=== PATIENT | male | born 1970 | race Caucasian/White ===

== ENCOUNTER 2020-02-28 09:26 | Outpatient (REF) | payer MEDICARE, SELFPAY ==
[2020-02-28 11:47] LABS: D Dimer < 200 NG/ML
== END 2020-02-28 09:27 | disposition home or self-care (01) ==
LOC: HO.HMGCLDS 09:26
PROVIDERS: Visit Provider Nurse Practitioner Family
DX: M79.661 Pain in right lower leg (principal)
CPT/HCPCS: 36415; 85379

== ENCOUNTER 2020-03-24 12:26 | Emergency (ER) | payer MEDICARE, SELFPAY ==
[2020-03-24 12:33] VITALS: BP 159/78; PULSE 100; RESP 18; TEMP 36.7; O2SAT 99; BMI 21.6
--- NOTE | 2020-03-24 14:37 | XR_ITS ---
EXAMINATION: XR ANKLE, RIGHT XR KNEE, RIGHT XR FEMUR, RIGHT XR LUMBAR SPINE XR SACRUM AND COCCYX CLINICAL INFORMATION: Persistent back and leg pain. GET +. COMPARISON: None TECHNIQUE: Lumbar spine 3 views. Sacrum and coccyx 3 views. Right femur 2 views. Right knee 2 views and right ankle 3 views. FINDINGS: LUMBAR SPINE: There is normal lumbar lordosis. The vertebral heights and alignment are normal. There is loss of L1-L2 and L3-L4 disc heights. The rest of the disc heights are normal. There is mild ventral spondylosis at L1-L2 and L3-L4. No lytic or sclerotic process seen. No visible acute fracture, dislocation or lytic process seen. SACRUM AND COCCYX: There is normal vertebral heights. No visible acute fracture, dislocation or bony abnormality seen. The presacral and parasacral soft tissues are normal. RIGHT FEMUR: There is no visible acute fracture seen. There is a moderate enthesophyte along the anterior distal femur and large enthesophyte along the medial femoral condyle. These could be as a result of old trauma. RIGHT KNEE: There is an intramedullary tibial sarahy traversing the proximal mid tibia. Mild reduction in the medial compartment joint space is seen with periarticular spurring. The lateral and patellofemoral compartment joint space is maintained. No abnormal suprapatellar joint effusion is seen. RIGHT ANKLE: There are old healed mid distal tibial and fibular fractures with moderate callus formation. The ankle mortise and subtalar joints are normal. Subtalar joint is normal. XR/XR sacrum coccyx min 2V IMPRESSION: No acute fracture, dislocation or subluxation seen in the lumbar spine, sacrum or coccyx. Moderate ventral spondylosis at the L1-L2 and L3-L4 disc level. No visible acute fracture or dislocation right femur. There is a moderate enthesophyte along the anterior distal femur and along the medial femoral condyle. There is mild loss of medial compartment joint space with periarticular spurring. No visible acute fracture or dislocation seen. There is an intramedullary tibial sarahy and old healed mid tibial fracture. Also visualized is an old healed mid fibular fracture. No acute fracture seen in the tibiofibular bone at this time. There is no visible acute fracture, dislocation or subluxation in the right ankle.
--- NOTE | 2020-03-24 15:08 | ED.FALL ---
HPI - Fall General Chief Complaint: Extremity Injury, Lower Stated Complaint: rt leg pain Time Seen by Provider: 03/24/20 14:27 Source: patient Mode of arrival: ambulatory Limitations: no limitations History of Present Illness HPI Narrative: 49yoM c No Sig PMHx presenting to the ED c c/o lower back/coccyx/Right upper leg/knee/ankle pain since he slipped and fell x 2 months ago on Ice pain is worse today after attmepting to go to a urgent care center that offers physical therapy. Denies head injury loss of consciousness or being on any blood thinners. Denies any other symptoms complaints or concerns at this time. Related Data Previous Rx's Medication Instructions Recorded lidocaine 5 % topical patch 2 patch TOPICAL DAILY #30 ea 02/28/20 prednisone 20 mg tablet 20 mg PO DAILY 9 Days #18 tab MDD 02/28/20 3 for 3days;2 for 3 days;1 3da gabapentin 100 mg capsule 200 mg PO BID #60 cap 03/21/20 oxycodone 5 mg PO Q8H PRN #14 tab 03/24/20 Allergies Allergy/AdvReac Type Severity Reaction Status Date / Time No Known Allergies Allergy Verified 03/21/20 08:18 Review of Systems Review of Systems: Constitutional : No trauma, No Weight loss, No Fever, No Chills, ENT/Mouth : No Hearing loss, No Ear Pain, No Nasal Congestion, No Sinus Pain, No Hoarseness, No sore throat, No Rhinorrhea, No Swallowing Difficulty Cardiovascular : No Chest Pain, No SOB Respiratory : No Cough, No Dyspnea Gastrointestinal : No Nausea, No Vomiting, No Diarrhea, No abdominal Pain, No Hematochezia, No Melena Genitourinary : No Dysuria, No Urinary Frequency, No Hematuria, No Urinary or Bowel Incontinence/retention Musculoskeletal : + Back pain, + Joint pain, No neck pain, No joint stiffness, No joint swelling Skin : No Skin Lesions, No rash or signs of infection Neuro : No Weakness, No radiation, No Numbness, No Paresthesias, No headache, no loss of bowel or bladder incontinence, no saddle anesthesia Denies history of IV drug usage. Yes all other systems are reviewed and are negative PMFSH Past Medical History Attestation statement: The following information was validated with the patient. Social History Social History Advance Directives: No Advance Directives Information Provided: No Physical Exam Vital Signs: Vital Signs: Last Vital Signs Temp 98.0 F 03/24/20 12:33 Pulse 100 03/24/20 12:33 Resp 18 03/24/20 12:33 BP 159/78 H 03/24/20 12:33 Pulse Ox 99 03/24/20 12:33 Body Mass Index 21.6 vital signs have been reviewed as normal and appeared to be correct. Blood pressure normal. Heart rate normal. Respiration rate normal. Temperature normal. Oxygen saturation normal. Appearance: Alert. Oriented X3. No acute distress. Head: Normal external exam. Normocephalic. Atraumatic. No Dixon signs noted. No raccoon eyes noted Eyes: PERRLA. EOMI. Conjunctiva and sclera normal. Eyelids normal. ENT: Pharynx normal. Uvula midline. Moist mucous membranes. Neck: Normal inspection. Neck supple. FROM. No adenopathy. No meningeal signs. CVS: Normal heart rate and rhythm. Heart sound normal. No murmurs noted. Pulses normal throughout. Respiratory: No respiratory distress. Painless inspiration. Breath sounds normal. No wheezes/rales/rhonchi noted. Chest nontender. No accessory muscle usage noted or decreased air movement noted. Back: No CVA tenderness. Full range of motion noted. No obvious deformities, or edema. Mild para-spinal muscular tenderness from lumbar region to coccyx. Full ROM in back and lower extremities. 5/5 strength hip extension/flexion, abduction, adduction. Mild Lumbar pain with hip flexion against resistance. Straight leg raise test negative on right; Straight leg raise test negative on left; Reflexes normal ankle and knee bilaterally; EHL motor strength normal bilaterally Skin: Skin warm and dry. Normal skin color. Normal skin turgor. No rashes/lesions/lacerations noted. Extremities: Tender to palpation to Right upper leg/knee/ankle no obvious deformities and patient has full range of motion of all joints of the right lower extremity. No obvious deformities. Patient has a normal steady gait. No rashes/lesion/induration/fluctuance/abrasion/lacerations/ecchymosis or hematomas noted. All other Extremities exhibit normal range of motion and nontender. Neuro: Oriented X 3. No motor deficit. No sensory deficit. Reflexes normal. Course Course Course Narrative: 14:37pm - 49yoM c No Sig PMHx presenting to the ED c c/o lower back/coccyx/Right upper leg/knee/ankle pain since he slipped and fell x 2 months ago on Ice pain is worse today after attempting to go to a urgent care center that offers physical therapy. Plan: Xray of lumbar spine/coccyx/femur/knee/ankle. Provide 5 mg of oxycodone and re-evaluate. Reevaluation(s) Reevaluation #1: - x-rays negative for any acute processes revealed chronic changes will DC home with a short script for pain meds and instructions return if any new or worsening symptoms. Patient understands agrees the plan. Time: 16:44 MDM - Fall Differential Diagnosis Differential diagnosis: Likely dislocation, fracture and compression fracture Medical Records Attestation: I reviewed the patient's medical records. Imaging Data Right ankle/knee/femur/lumbar spine/sacrum and coccyx: Attestation: I personally reviewed and interpreted this imaging study as follows: Radiologist's impression: EXAMINATION: XR ANKLE, RIGHT XR KNEE, RIGHT XR FEMUR, RIGHT XR LUMBAR SPINE XR SACRUM AND COCCYX CLINICAL INFORMATION: Persistent back and leg pain. GET +. COMPARISON: None TECHNIQUE: Lumbar spine 3 views. Sacrum and coccyx 3 views. Right femur 2 views. Right knee 2 views and right ankle 3 views. FINDINGS: LUMBAR SPINE: There is normal lumbar lordosis. The vertebral heights and alignment are normal. There is loss of L1-L2 and L3-L4 disc heights. The rest of the disc heights are normal. There is mild ventral spondylosis at L1-L2 and L3-L4. No lytic or sclerotic process seen. No visible acute fracture, dislocation or lytic process seen. SACRUM AND COCCYX: There is normal vertebral heights. No visible acute fracture, dislocation or bony abnormality seen. The presacral and parasacral soft tissues are normal. RIGHT FEMUR: There is no visible acute fracture seen. There is a moderate enthesophyte along the anterior distal femur and large enthesophyte along the medial femoral condyle. These could be as a result of old trauma. RIGHT KNEE: There is an intramedullary tibial sarahy traversing the proximal mid tibia. Mild reduction in the medial compartment joint space is seen with periarticular spurring. The lateral and patellofemoral compartment joint space is maintained. No abnormal suprapatellar joint effusion is seen. RIGHT ANKLE: There are old healed mid distal tibial and fibular fractures with moderate callus formation. The ankle mortise and subtalar joints are normal. Subtalar joint is normal. XR/XR ankle RT min 3V IMPRESSION: No acute fracture, dislocation or subluxation seen in the lumbar spine, sacrum or coccyx. Moderate ventral spondylosis at the L1-L2 and L3-L4 disc level. No visible acute fracture or dislocation right femur. There is a moderate enthesophyte along the anterior distal femur and along the medial femoral condyle. There is mild loss of medial compartment joint space with periarticular spurring. No visible acute fracture or dislocation seen. There is an intramedullary tibial sarahy and old healed mid tibial fracture. Also visualized is an old healed mid fibular fracture. No acute fracture seen in the tibiofibular bone at this time. There is no visible acute fracture, dislocation or subluxation in the right ankle. Discharge Plan Discharge Clinical Impression: Ankle sprain and strain, Leg sprain, Knee sprain, Lumbar strain, Fall, Strain of coccyx Patient Disposition: Home, Self-Care Instructions: Sprain (ED) Prescriptions: New oxycodone 5 mg tablet 5 mg PO Q8H PRN (Reason: pain) Qty: 14 RF: 0 No Action prednisone 20 mg tablet 20 mg PO DAILY MDD 3 for 3days;2 for 3 days;1 3da 9 Days Qty: 18 RF: 0 lidocaine 5 % adhesive patch,medicated 2 patch topical DAILY Qty: 30 RF: 0 gabapentin 100 mg capsule 200 mg PO BID Qty: 60 RF: 0 Referrals: Physician,None [Primary Care Provider] - 2 days (your pcp) Print Language: Greenlandic
[2020-03-24] MEDS: oxyCODONE HCl Immed Release 5 MG TABLET PO (15:09)
[2020-03-24 16:59] VITALS: BP 148/88; PULSE 94; RESP 16; TEMP 36.6; O2SAT 96
== END 2020-03-24 17:01 | disposition home or self-care (01) ==
PROVIDERS: Emergency Provider Emergency Medicine
DX: S83.91XA Sprain of unspecified site of right knee, initial encounter (principal); S39.012A Strain of muscle, fascia and tendon of lower back, initial encounter; S93.401A Sprain of unspecified ligament of right ankle, initial encounter; M79.604 Pain in right leg; M53.3 Sacrococcygeal disorders, not elsewhere classified; W00.0XXA Fall on same level due to ice and snow, initial encounter; Y93.9 Activity, unspecified; Y92.9 Unspecified place or not applicable; Y99.9 Unspecified external cause status; Z79.899 Other long term (current) drug therapy
CPT/HCPCS: 72110; 72220; 73552; 73564; 73610; 99283; 99284

== ENCOUNTER 2020-04-28 10:00 | Outpatient (RCR) | payer MEDICARE, SELFPAY ==
--- NOTE | 2020-03-23 19:13 | MHC.PT.EP ---
[facility] [place] Office [place] Office [place] Office [address] [phone] F: [phone] F: [phone] F: [phone] F: [phone] Physical Therapy Plan of Care Date of Evaluation: 03/23/20 Date of Surgery: Diagnosis: Sciatica R side. Assessment: Pt is a 49 y/o male referred to PT for eval ant treat of R sided sciatica who presents with signs and Sx consistent with Dx resulting in decreased tolerance for sitting and standing for duration, walking for duration, negotiating stairs and curbs as well as performing heavy HH chores secondary to decreased trunk ROM and strength, increased R LE tissue tension, gait abnormality, pelvic asymmetry, hip weakness, decreased R L5 dermatome sensation, and pain. Pt is deemed an appropriate candidate to receive skilled PT services to address his physical impairments in order to improve his functional ability. Frequency and Duration: The patient will be seen 2 x /wk x 5 wks. Short Term Goals: in 1 week: initiate HEP with evidence of compliance. In 3 weeks: TTP of R HS area improved to < 2 +, initial 3+ (considerable). Detention Goals: In 5 weeks: i with HEP. In 5 weeks: Pt will be able to walk 2 blocks with at most a little bit of difficulty; initial: extreme difficulty or unable (LEFs). Treatment Plan: Modalities to reduce pain, spasms and effusion. Manual therapy to restore motion and function. Therapeutic exercise to improve strength and flexibility. Neuromuscular re-education for posture and balance. Therapeutic activities to return to functional activities of daily living. Electronically signed by: Chidi Cabrera PT. Please sign and return to therapist. Thank you for your referral.
--- NOTE | 2020-07-06 16:10 | MHC.PT.DC ---
[facility] [place] Office [place] Office [place] Office [address] [phone] F: [phone] F: [phone] F: [phone] F: [phone] Physical Therapy Discharge Report Diagnosis: Sciatica R side. Date of Surgery: Date of Evaluation: 03/23/20 Date of Discharge: Treatments to Date: 9 Cancellations to Date: 0 No Shows to Date: 0 Discharge Status: Independent with HEP Recommend MD Follow-up Discharge Summary: From last note: I reviewed the HEP and assessed progress on symptoms and function. Pt is challenging to gauge in terms of subjective reports. But at this time, we determined it was best to continue with HEP and return to MD (appt today) due to lack of significant progress. Electronically signed by: Chidi Cabrera PT. Please sign and return to therapist. Thank you for your referral.
== END 2020-07-06 16:12 | disposition home or self-care (01) ==
LOC: HO.PTCHIC 10:00
PROVIDERS: Visit Provider Nurse Practitioner Family
DX: M54.31 Sciatica, right side (principal)
CPT/HCPCS: 97014; 97110; 97140; 97162

== ENCOUNTER 2020-04-28 12:00 | Outpatient (REF) | payer MEDICARE, SELFPAY ==
--- NOTE | ~2020-04-28 | MR_ITS ---
MR LUMBAR SPINE WITHOUT CONTRAST CLINICAL INFORMATION: Low back pain. COMPARISON: Lumbar spine radiographs 04/13/2020. TECHNIQUE: MRI of the lumbar spine was obtained using routine sequences without contrast. FINDINGS: There are 5 nonrib-bearing lumbar-type vertebral bodies. Lumbar alignment is normal. Chronic endplate Schmorl's nodes at the lower thoracic and all lumbar levels. Modic type I endplate signal changes at all lumbar levels. There are no acute fractures. Conus terminates at the T12-L1 level. There are no significant soft tissue findings. There is a fatty filum terminale. L1-L2: Diffuse annular disc bulge with a superimposed right foraminal/extraforaminal disc protrusion that results in moderate to severe right-sided foraminal stenosis with mass effect on the exiting right L1 nerve root. No central canal and no left foraminal stenosis. L2-L3: Diffuse annular disc bulge and bilateral facet arthropathy. No central canal stenosis. There is mild foraminal encroachment bilaterally. L3-L4: There is a diffuse annular disc bulge the superimposed left foraminal/extraforaminal disc protrusion that results in moderate to severe left foraminal stenosis and compression of the foraminal and extraforaminal segments of the exiting left L3 nerve root. There is mild right foraminal encroachment. No central canal stenosis. L4-L5: Diffuse annular disc bulge with a superimposed right foraminal/extra foraminal disc protrusion that results in moderate to severe right-sided foraminal stenosis and compression of the extraforaminal greater than foraminal segments of the exiting right L4 nerve root. No central canal and no left foraminal stenosis. L5-S1: Diffuse annular disc bulge the superimposed inferiorly migrating right paracentral disc extrusion that compresses the traversing right S1 nerve root within the right subarticular zone. A far left lateral disc osteophyte protrusion contacts the extra foraminal left L5 nerve root. MR/MR lumbar spine wo con IMPRESSION: - At L5-S1, there is an inferiorly migrating right paracentral disc extrusion that compresses the traversing right S1 nerve root within the right subarticular zone. A far left lateral disc osteophyte protrusion contacts the extra foraminal left L5 nerve root. - At L4-L5, there is a large right foraminal/extra foraminal disc protrusion that results in moderate to severe right-sided foraminal stenosis and compression of the extraforaminal greater than foraminal segments of the exiting right L4 nerve root. - At L3-L4, a left foraminal/extraforaminal disc protrusion results in moderate to severe left foraminal stenosis and compression of the foraminal and extraforaminal segments of the exiting left L3 nerve root. - At L1-L2, a right foraminal/extraforaminal disc protrusion that results in moderate to severe right-sided foraminal stenosis with mass effect on the exiting right L1 nerve root. - Fatty filum terminale.
== END 2020-04-28 12:01 | disposition home or self-care (01) ==
LOC: HO.MRI 12:00
PROVIDERS: Visit Provider Nurse Practitioner Family
DX: M54.5 Low back pain (principal)
CPT/HCPCS: 72148

== ENCOUNTER 2021-02-12 07:22 | Emergency (ER) | payer MEDICARE, MEDICAID, SELFPAY ==
--- NOTE | ~2021-02-12 | XR_ITS ---
EXAMINATION: XR HIP, LEFT CLINICAL INFORMATION: Fall one month ago COMPARISON: None TECHNIQUE: Two views of the left hip. FINDINGS: Bones and soft tissues are normal. No fracture. Alignment is anatomic. Hip joint space is maintained. XR/XR hip LT min 2V IMPRESSION: Normal left hip.
[2021-02-12 07:27] VITALS: BP 180/92; PULSE 92; O2SAT 100
[2021-02-12 07:31] VITALS: PULSE 88; RESP 19; TEMP 36.6; O2SAT 99; BMI 20.9
--- NOTE | 2021-02-12 08:37 | ED_ITS ---
HPI - Extremity Injury (Lower) General Chief Complaint: Extremity Injury, Lower <GONZALES Sorto - Last Filed: 02/12/21 14:42> Stated Complaint: LEFT HIP AND LEG PAIN <GONZALES Sorto - Last Filed: 02/12/21 14:42> Time Seen by Provider: 02/12/21 07:34 <GONZALES Sorto - Last Filed: 02/12/21 14:42> Source: patient <GONZALES Sorto - Last Filed: 02/12/21 14:42> Mode of arrival: ambulatory <GONZALES Sorto - Last Filed: 02/12/21 14:42> History of Present Illness HPI Narrative: 50-year-old male with no significant past medical history presenting to the ED complaining of left buttock pain radiating down left lower extremity x1 month s/p mechanical fall in shower 1 month ago. States acute on chronic pain worsening x a couple days. Has been taking Motrin without relief. Denies new injury/trauma or fall. Reports associated numbness/tingling radiating down leg. Denies weakness, urinary incontinence/retention, fever/chills <GONZALES Sorto - Last Filed: 02/12/21 14:42> MD complaint: leg injury <GONZALES Sorto Last Filed: 02/12/21 14:42> Related Data Home Medications: Previous Rx's Medication Instructions Recorded acetaminophen 500 mg tablet 500 mg PO Q6H PRN #20 tab 02/12/21 (Tylenol Extra Strength) cyclobenzaprine 5 mg tablet 5 mg PO Q8H PRN 5 Days #14 tab 02/12/21 lidocaine 5 % topical patch 1 patch TOPICAL DAILY PRN #30 ea 02/12/21 (Lidoderm) MDD remove after 12 hours naproxen 500 mg tablet 500 mg PO BID PRN 10 Days #20 tab 02/12/21 <GONZALES Sorto Last Filed: 02/12/21 14:42> Allergies/Adverse Reactions: Allergies Allergy/AdvReac Type Severity Reaction Status Date / Time No Known Allergies Allergy Verified 06/14/20 13:58 <GONZALES Sorto Last Filed: 02/12/21 14:42> Review of Systems Review of Systems: Constitutional: No Fever, No Chills ENT/Mouth: No Ear Pain, No sore throat, No Swallowing Difficulty Cardiovascular: No Chest Pain, No SOB Respiratory: No Cough, No Sputum, No Wheezing Gastrointestinal: No Nausea, No Vomiting, No Diarrhea, No Abdominal pain Genitourinary:No Urinary Frequency, No Urinary Incontinence/retention Musculoskeletal: + joint pain, No Myalgias, No Joint Swelling Skin: No Skin Lesions, No rash Neuro: No Weakness, + Numbness, + Paresthesias <GONZALES Sorto - Last Filed: 02/12/21 14:42> Yes all other systems are reviewed and are negative <GONZALES Sorto - Last Filed: 02/12/21 14:42> Neurologic: Denies Sensory deficit (Neuro) <GONZALES Sorto - Last Filed: 02/12/21 14:42> [facility] Past Medical History Attestation statement: The following information was validated with the patient. <GONZALES Sorto - Last Filed: 02/12/21 14:42> Family History Family History: Family History Father No problems noted. Mother No problems noted. <GONZALES Sorto - Last Filed: 02/12/21 14:42> Social History Social History: Social History Alcohol intake: former Cigarettes Per Day: 15 Years Smoked: 17 years old Advance Directives: No <GONZALES Sorto - Last Filed: 02/12/21 14:42> Physical Exam Vital Signs: Vital Signs: Last Vital Signs Temp 99.0 F 02/12/21 14:00 Pulse 100 02/12/21 14:00 Resp 18 02/12/21 14:00 BP 155/87 H 02/12/21 14:00 Pulse Ox 99 02/12/21 14:00 Body Mass Index 20.9 <GONZALES Sorto - Last Filed: 02/12/21 14:42> Vital Signs: Last Vital Signs Temp 99.0 F 02/12/21 14:00 Pulse 100 02/12/21 14:00 Resp 18 02/12/21 14:00 BP 155/87 H 02/12/21 14:00 Pulse Ox 99 02/12/21 14:00 Body Mass Index 20.9 <Ezekiel Ramirez MD - Last Filed: 02/12/21 10:49> Const: General: cooperative and healthy appearing <Marily Tuttle [place] - Last Filed: 02/12/21 14:42> Orientation/consciousness: patient oriented x3 <Marily Tuttle [place] - Last Filed: 02/12/21 14:42> Limitations: no limitations <Marily Tuttle [place] - Last Filed: 02/12/21 14:42> HENMT: Head: Yes normal to inspection <Marily Tuttle [place] - Last Filed: 02/12/21 14:42> Ears: hearing grossly normal bilaterally <Marily Tuttle [place] - Last Filed: 02/12/21 14:42> General nose exam: Normal external nose present <Marily Tuttle [place] - Last Filed: 02/12/21 14:42> Face and sinus: Yes normal facial exam <Marily Tuttle [place] - Last Filed: 02/12/21 14:42> Eyes: General: appearance normal, both eyes and all related structures <Marily Tuttle OH - Last Filed: 02/12/21 14:42> EOM: EOMs intact bilaterally <Marily Tuttle [place] - Last Filed: 02/12/21 14:42> Neck: Other: No midline cervical spinous tenderness <Marily Tuttle OH - Last Filed: 02/12/21 14:42> Neck: Yes normal visual inspection <Marily Tuttle OH - Last Filed: 02/12/21 14:42> Resp: Effort & Inspection: normal respiratory effort and no respiratory distress <Marily Tuttle OH - Last Filed: 02/12/21 14:42> Cardio: Rate: regular rate <Marily Tuttle OH - Last Filed: 02/12/21 14:42> Peripheral pulses: dorsalis pedis present <Marily Tuttle OH - Last Filed: 02/12/21 14:42> GI: Inspection: Yes normal to inspection <Marily Tuttle [place] - Last Filed: 02/12/21 14:42> Palpation (GI): Soft to palpation, nontender, no guarding and not rigid <Marily Tuttle OH - Last Filed: 02/12/21 14:42> : General: Yes no CVA tenderness <Marily Parag, PA - Last Filed: 02/12/21 14:42> Back/Spine/Pelvis: Other: No midline thoracic/lumbar spinous tenderness. + left buttock tenderness to palpation <Marily Parag, PA - Last Filed: 02/12/21 14:42> Back: no CVA tenderness <Marily [facility], [facility] - Last Filed: 02/12/21 14:42> Skin: Rashes: no rashes <Marily [facility], [facility] - Last Filed: 02/12/21 14:42> Wounds: no wounds <Marily [facility], [facility] - Last Filed: 02/12/21 14:42> Neuro: Other: No saddle anesthesia, ambulating with steady gait <Marily Parag, PA - Last Filed: 02/12/21 14:42> General: patient oriented x3, gait normal, tone normal, moves all extremities and no focal motor deficits <Marily Parag, PA - Last Filed: 02/12/21 14:42> Gait exam (Neuro): Normal gait present <Marily [facility] PA - Last Filed: 02/12/21 14:42> Motor exam (neuro): 5/5 motor strength present throughout <Marily Parag, PA - Last Filed: 02/12/21 14:42> Sensory Exam: No Sensory deficit (Neuro) <Marily Parag, PA - Last Filed: 02/12/21 14:42> Extrem: General: Yes normal to inspection <Marily Tuttle PA - Last Filed: 02/12/21 14:42> Course Course Course Narrative: XR hip LT min 2V IMPRESSION: Normal left hip. > results discussed with patient, reporting he cannot ambulate. Case discussed with Dr. Ramirez who also evaluated patient and is in agreement with plan. Will give patient Gabapentin and have PT/CM eval patient -[id number]--patient was evaluated by a physical therapy and recommended home with services. Case Management evaluated patient, patient does not currently have a PCP so they set up PCP appointment with [facility] who will call him with an appointment. Patient's brother is going to pick him up from ED for ride home <Marily Tuttle PA - Last Filed: 02/12/21 14:42> Reevaluation(s) Reevaluation #1: I agree with history and physical. My exam is no nerve weakness, leg is full strenght with start gabapentin for neuropathic pain <Ezekiel Ramirez MD - Last Filed: 02/12/21 10:49> Time: 10:49 <Ezekiel Ramirez MD - Last Filed: 02/12/21 10:49> MDM - Extremity Injury (Lower) MDM Narrative Medical decision making narrative: 50-year-old male with no significant past medical history presenting to the ED complaining of left buttock pain radiating down left lower extremity x1 month s/p mechanical fall in shower 1 month ago. On exam vital signs stable, NAD/nontoxic, no midline spinous tenderness throughout, no red flag symptoms, ambulating with steady gait. Concern for sciatica/MSK pain/muscle spasming. Low concern for cauda equina/cord compression or fracture Will obtain left hip x-ray <GONZALES Sorto - Last Filed: 02/12/21 14:42> Medical Records Attestation: I reviewed the patient's medical records. <GONZALES Sorto - Last Filed: 02/12/21 14:42> Lab Data Attestation: I reviewed the patient's lab results. <GONZALES Sorto - Last Filed: 02/12/21 14:42> Discharge Plan Discharge Clinical Impression: Sciatica Qualifiers: Laterality: left Qualified Code(s): M54.32 - Sciatica, left side <GONZALES Sorto - Last Filed: 02/12/21 14:42> Patient Disposition: Home, Self-Care <GONZALES Sorto - Last Filed: 02/12/21 14:42> Instructions: Sciatica (ED) <GONZALES Sorto - Last Filed: 02/12/21 14:42> Additional Instructions: Your x-ray was unremarkable Your pain is likely musculoskeletal Flexeril is a muscle relaxer, take at night as it makes you drowsy, do not drive, drink alcohol, or operate machinery while taking it Naproxen as an anti-inflammatory / pain medication, take with food Lidoderm patches are numbing patches, apply to painful area In addition take Tylenol at home If symptoms persist or worsen, pain becomes unbearable, you developed urinary retention or incontinence, or weakness return to the ED <GONZALES Sorto - Last Filed: 02/12/21 14:42> Prescriptions: New acetaminophen [Tylenol Extra Strength] 500 mg tablet 500 mg PO Q6H PRN (Reason: pain or fever) Qty: 20 RF: 0 lidocaine [Lidoderm] 5 % adhesive patch,medicated 1 patch topical DAILY MDD remove after 12 hours PRN (Reason: pain) Qty: 30 RF: 0 naproxen 500 mg tablet 500 mg PO BID PRN (Reason: pain) 10 Days Qty: 20 RF: 0 cyclobenzaprine 5 mg tablet 5 mg PO Q8H PRN (Reason: pain (scale score 7-10)) 5 Days Qty: 14 RF: 0 <GONZALES Sorto - Last Filed: 02/12/21 14:42> Referrals: Demetrius Garcia, [facility] [Nurse Practitioner] - 2 days (Demetrius's office will call with an appointment. ) <GONZALES Sorto - Last Filed: 02/12/21 14:42>
[2021-02-12] MEDS: Cyclobenzaprine HCl 5 MG TABLET PO (09:02)
[2021-02-12] MEDS: Lidocaine 4 % Patch ADH..PATCH 1 PATCH TRANSDERMA (09:02)
[2021-02-12] MEDS: oxyCODONE HCl Immed Release 5 MG TABLET PO (10:09)
[2021-02-12] MEDS: Gabapentin 100 MG CAPSULE PO (11:12)
[2021-02-12 11:25] VITALS: PULSE 88; O2SAT 99
[2021-02-12 11:56] VITALS: BP 178/90; PULSE 72; RESP 18; TEMP 37.2; O2SAT 99
--- NOTE | 2021-02-12 13:18 | MHC.CM.ED ---
Addendum entered by Rachelle Flores 02/12/21 14:37: [facility] will call patient at roommate's telephone number [phone]. Original Note: Received case management consult from Marily ROLON. Patient came to ER due to sciatica pain. Physical therapy eval completed. Home therapy is recommended. Met with patient in regards to discharge planning. Patient started living with a friend a couple days of go. Prior to that, patient was living in a homeless fpc. Patient states he hasn't had a PCP for years. Case management office has been asked to find a PCP and arrange a new patient appointment. Patient is aware once this appointment is completed, PCP's office will be able to help arrange home therapy. Patient verbalizes understanding. Marily ROLON aware. Continue to monitor for d/c needs.
[2021-02-12 14:00] VITALS: BP 155/87; PULSE 100; RESP 18; TEMP 37.2; O2SAT 99
== END 2021-02-12 15:08 | disposition home or self-care (01) ==
PROVIDERS: Emergency Provider Emergency Medicine; PCP Nurse Practitioner Family
DX: M54.32 Sciatica, left side (principal); Z79.899 Other long term (current) drug therapy
CPT/HCPCS: 73502; 97162; 99284

== ENCOUNTER 2022-12-10 15:55 | Emergency (ER) | payer OTHER, MEDICAID, SELFPAY ==
--- NOTE | ~2022-12-10 | XR_ITS ---
EXAMINATION: XR SHOULDER, LEFT CLINICAL INFORMATION: Pain COMPARISON: None available. TECHNIQUE: AP external rotation, Grashey, scapular Y, and axillary views of the left shoulder. FINDINGS: The bones and soft tissues are normal. No fracture. Glenohumeral and acromioclavicular alignment is anatomic with normal joint space. No abnormal soft tissue calcifications. XR/XR shoulder LT min 2V IMPRESSION: No significant abnormality identified.
[2022-12-10 16:07] VITALS: BP 140/90; PULSE 91; O2SAT 95; BMI 20.9
--- NOTE | 2022-12-10 16:14 | ED.ALCOHOL ---
HPI - Alcohol General Chief Complaint: ETOH/Substance Use Stated Complaint: ETOH/SI, told sis he wanted to jump off bridge Time Seen by Provider: 12/10/22 16:03 Source: patient and EMS Mode of arrival: EMS Limitations: no limitations History of Present Illness HPI narrative: A 52-year-old male presented by ambulance for concerns of depression and SI. Patient is a daily drinker he drinks beer everyday admitted to drinking beer last night. Patient told his sister that he is feeling depressed and is going to jump of the bridge, patient is calm the emergency department decline depression or any SI or HI. Patient also been complaining of left shoulder pain for the last few months declined any direct trauma to shoulder or heavy lifting. Pain is constant more when he tried to lift his left shoulder/left arm above his head. Patient live home with a roommate, currently not working. Related Data Previous Rx's Medication Instructions Recorded acetaminophen 500 mg tablet 500 mg PO Q6H PRN pain or fever 02/12/21 (Tylenol Extra Strength) #20 tabs cyclobenzaprine 5 mg tablet 5 mg PO Q8H PRN pain (scale score 02/12/21 7-10) 5 days #14 tabs lidocaine 5 % topical patch 1 patch topical DAILY PRN pain #30 02/12/21 (Lidoderm) ea naproxen 500 mg tablet 500 mg PO BID PRN pain 10 days #20 02/12/21 tabs Allergies Allergy/AdvReac Type Severity Reaction Status Date / Time No Known Allergies Allergy Verified 06/14/20 13:58 Review of Systems Review of Systems: All other systems are reviewed and are negative Constitutional: Reports as per HPI and Reports no additional constitutional complaints Eyes: Reports as per HPI and Reports no additional eye complaints Reports system reviewed and no additional complaints, except as documented Cardiovascular: Reports as per HPI and Reports no additional cardiovascular complaints Respiratory: Reports as per HPI and Reports no additional respiratory complaints Gastrointestinal: Reports as per HPI and Reports no additional gastrointestinal complaints Genitourinary: Reports no additional female genitourinary complaints Musculoskeletal: Reports no additional musculoskeletal complaints Skin/Breast: Reports system reviewed and no additional complaints, except as docu Psychiatric: Reports no additional psychiatric complaints Endocrine: Reports no additional endocrine complaints Hematologic/Lymphatic: Reports no additional hematologic/lymphatic complaints Allergic/Immunologic: Reports no additional allergic/immunologic complaints Reports system reviewed and no additional complaints, except as documented and Reports Abnormal speech present [facility] Family History Family History Father No problems noted. Mother No problems noted. Social History Social History Alcohol intake: former Cigarettes Per Day: 15 Years Smoked: 17 years old Smoked in Last 30 Days: Yes Use of substances other than those prescribed or required for medical reasons: No Physical Exam ED Vital Signs: Vital Signs - 24 hr 12/10/22 16:16 Temperature 98.4 F Pulse Rate 82 Respiratory Rate 16 Blood Pressure 117/68 Pulse Oximetry 98 Oxygen Delivery Method Room Air BMI result Body Mass Index 20.9 Vital signs have been reviewed and appear to be correct. Blood pressure elevated. Heart rate normal. Respiratory rate normal. Temperature normal. Oxygen saturation normal. Appearance: Alert. Oriented X3. No acute distress. Head: Normal external exam. Normocephalic. Atraumatic. No Dixon signs noted. No raccoon eyes noted Eyes: PERRLA. EOMI. Conjunctiva and sclera normal. Eyelids normal. ENT: TM's Normal. Pharynx normal. Uvula midline. Moist mucous membranes. No trismus noted. No drooling noted. No muffled voice noted. Neck: Normal inspection. Neck supple. FROM. No adenopathy. Thyroid Normal. No meningeal signs. No neck mass noted. CVS: Normal heart rate and rhythm. Heart sound normal. No murmurs noted. Pulses normal throughout. Respiratory: No respiratory distress. Painless inspiration. Breath sounds normal. No wheezes/rales/rhonchi noted. Chest nontender. No accessory muscle usage noted or decreased air movement noted. Abdomen: Soft and nontender. Bowel sounds normal in all 4 quadrants. No distention noted. No organomegaly noted. No visible injury noted. Back: No CVA tenderness. Full range of motion noted. Skin: Skin warm and dry. Normal skin color. Normal skin turgor. No rashes/lesions/lacerations noted. Extremities: No lower extremity edema. Extremities exhibit normal range of motion. Extremities nontender. Neuro: Oriented X 3. Cranial nerve exam: II-XII are grossly intact No motor deficit. No sensory deficit. Reflexes normal. Patient Orientation: Person, Place, Time and Situation, okay hygiene and grooming. Fair eye contact, attentive, no tics or tremors. Level of Consciousness: Awake, Appropriate and Alert Patient Behavior: Appropriate, Guarded, Cooperative and Anxious Mood Description: Constricted, Blunted and Apprehensive Affect Description: Constricted, Blunted and Apprehensive Patient Cognition Impaired: No Ability to Follow Directions: Excellent Speech Pattern: Clear, Appropriate and Spontaneous Speech, nonpressured, spontaneous with regular rate and rhythm, normal volume and prosody. No dysarthria. Memory Description: Intact, Immediate Intact and Short Term Intact Hallucinations: None Delusions: Not Present Thought Process: Intact Thought Content: positive for Intact, positive for Logical, denies Suicidal Ideation and denies Homicidal Ideation. Depressive Symptoms: Not present. Judgement and Insight: Limited but adequate. Course Course Course Narrative: A 52-year-old drink daily complaining depression HI patient states 2 sisters that he depressed and wanted to jump of the bridge, patient currently decline depression or SI. Will wait for patient more so over and re-evaluate. Medical Decision Making Differential Diagnosis Differential Diagnoses: The differential diagnosis associated with the presentation includes (Left shoulder rotator cuff tendinitis, left shoulder arthritis, left shoulder fracture/dislocation, alcohol intoxication, depression.) Admission/Observation Consideration of admission/observation: Escalation of care including admission/observation considered Lab Data Labs: Lab Results 12/10/22 Range/Units 16:57 Ethyl Alcohol 260 mg/dL Discharge Plan Discharge Clinical Impression: Alcoholic intoxication, Depression Patient Disposition: Still a Patient Prescriptions: No Action acetaminophen [Tylenol Extra Strength] 500 mg tablet 500 mg PO Q6H PRN (Reason: pain or fever) Qty: 20 0RF lidocaine [Lidoderm] 5 % adhesive patch,medicated 1 patch topical DAILY MDD remove after 12 hours PRN (Reason: pain) Qty: 30 0RF Rx Instructions: leave on most painful area for up to 12 hrs naproxen 500 mg tablet 500 mg PO BID PRN (Reason: pain) 10 Days Qty: 20 0RF cyclobenzaprine 5 mg tablet 5 mg PO Q8H PRN (Reason: pain (scale score 7-10)) 5 Days Qty: 14 0RF
[2022-12-10 16:16] VITALS: BP 117/68; PULSE 82; RESP 16; TEMP 36.9; O2SAT 98
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
[2022-12-10 17:16] LABS: Ethanol 260 mg/dL
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
[2022-12-10 22:06] VITALS: BP 154/84; PULSE 78; RESP 16; TEMP 37; O2SAT 99
--- NOTE | 2022-12-11 00:21 | PC.NURSE ---
pt up to bathroom independently to void. returned back to stretcher. resting comfortable in stretcher at this time in no apparent distress.
[2022-12-11 01:49] LABS: Amphetamine Screen Urine Not Detected (Not Detect); Barbiturates, Urine Not Detected (Not Detect); Benzodiazepines Screen Urine Not Detected (Not Detect); Cannabinoid Screen Urine POSITIVE (Not Detect); Cocaine Screen Urine Not Detected (Not Detect); Fentanyl, urine Not Detected (Not Detect); Opiate Screen Urine Not Detected (Not Detect); Phencyclidine Screen Urine Not Detected (Not Detect)
[2022-12-11 05:58] VITALS: BP 174/98; PULSE 90; RESP 18; TEMP 37.1; O2SAT 98
--- NOTE | 2022-12-11 07:28 | PC.NURSE ---
Initial contact with pt. pt ambulatory on unit, calm and cooperative with care. awaiting care team eval.
--- NOTE | 2022-12-11 08:20 | MHC.CARE ---
CARE Team spoke with charge manager- care team consult being canceled by provider
--- NOTE | 2022-12-11 11:40 | PC.NURSE ---
pt's family served pt with [address]. they are transporting him to the [place] [address] on [address].
== END 2022-12-11 11:42 | disposition home or self-care (01) ==
PROVIDERS: Emergency Provider Emergency Medicine
DX: F10.129 Alcohol abuse with intoxication, unspecified (principal); F33.1 Major depressive disorder, recurrent, moderate; M25.512 Pain in left shoulder; Y90.8 Blood alcohol level of 240 mg/100 ml or more; Z79.899 Other long term (current) drug therapy
CPT/HCPCS: 36415; 73030; 80307; 99284

== ENCOUNTER 2023-06-09 13:29 | Emergency (ER) | payer MEDICARE, MEDICAID, SELFPAY ==
[2023-06-09 14:01] VITALS: BP 146/88; PULSE 81; RESP 16; TEMP 36.2; O2SAT 99; BMI 23.0
--- NOTE | 2023-06-09 14:01 | ED.GENADULT ---
HPI - General Adult General Chief complaint: Extremity Problem Stated complaint: issue with r ring finger Time Seen by Provider: 06/09/23 14:06 Source: patient Mode of arrival: ambulatory Limitations: no limitations History of Present Illness HPI narrative: Patient is a 52 year old assigned male at with a history of heart murmur presenting to the emergency department today with persistent right ring finger pain and sticking. Patient states that over the last month his right ring finger has hurt all the way down to his palm and is getting stuck when he attempts to flex it sometimes. Patient denies any dizziness, lightheadedness, abdominal pain, nausea, vomiting, fever, chills, blurry vision, double vision, loss of vision, chest pain, difficulty breathing, shortness of breath, back pain, night sweats, pain with urination, increased urinary frequency, increased urinary urgency, blood in his urine or stool, syncope or a near syncopal episode, bowel incontinence, bladder incontinence, bowel retention, bladder retention, or any other complaints at this time. Patient states approximately 1 month ago, when this started, he had an x-ray of the finger that was negative. Onset (ago): month(s) (1) Location: right and upper extremity (ring finger) Severity: mild Severity scale (1-10): 3 Quality: aching and dull Pain Consistency: intermittent Relieving factors: none Exacerbating factors: none Associated symptoms: denies other symptoms Treatments prior to arrival: none Related Data Previous Rx's Medication Instructions Recorded acetaminophen 500 mg tablet 500 mg PO Q6H PRN pain or fever 02/12/21 (Tylenol Extra Strength) #20 tabs cyclobenzaprine 5 mg tablet 5 mg PO Q8H PRN pain (scale score 02/12/21 7-10) 5 days #14 tabs lidocaine 5 % topical patch 1 patch topical DAILY PRN pain #30 02/12/21 (Lidoderm) ea naproxen 500 mg tablet 500 mg PO BID PRN pain 10 days #20 02/12/21 tabs prednisone 20 mg tablet 20 mg PO DAILY 7 days #7 tabs 06/09/23 Allergies Allergy/AdvReac Type Severity Reaction Status Date / Time No Known Allergies Allergy Verified 06/14/20 13:58 Review of Systems Constitutional: Constitutional: Reports no additional constitutional complaints, Denies chills, Denies fever(s) and Denies night sweats Eyes: Eyes: Reports no additional eye complaints, Denies blurry vision, Denies change in vision, Denies diplopia, Denies eye discharge, Denies loss of vision and Denies eye pain ENT: Denies dizziness Cardiovascular: Cardiovascular: Reports no additional cardiovascular complaints, Denies chest pain, Denies lightheadedness, Denies Loss of Consciousness and Denies dyspnea Respiratory: Respiratory: Reports no additional respiratory complaints and Denies dyspnea Gastrointestinal: Gastrointestinal: Reports no additional gastrointestinal complaints, Denies abdominal pain, Denies melena, Denies hematochezia, Denies change in bowel habits and Denies change in stool character Genitourinary: Genitourinary: Reports no additional male genitourinary complaints, Denies hematuria, Denies oliguria, Denies difficulty urinating, Denies dysuria, Denies urinary frequency, Denies urinary hesitancy, Denies urinary incontinence and Denies urinary urgency Musculoskeletal: Musculoskeletal: Reports no additional musculoskeletal complaints, Denies numbness and Denies tingling Comments: right ring finger pain Neurologic: Denies dizziness, Denies loss of vision, Denies numbness and Denies tingling Psychiatric: Psychiatric: Reports no additional psychiatric complaints Endocrine: Endocrine: Reports no additional endocrine complaints Hematologic/Lymphatic: Hematologic/Lymphatic: Reports no additional hematologic/lymphatic complaints Allergic/Immunologic: Allergic/Immunologic: Reports no additional allergic/immunologic complaints PMFSH Past Medical History Attestation statement: The following information was validated with the patient. Source: old records reviewed and nursing notes reviewed Family History Family History Father No problems noted. Mother No problems noted. Social History Social History Alcohol intake: former Cigarettes Per Day: 15 Years Smoked: 17 years old Advance Directives: No Advance Directives Information Provided: No Physical Exam ED Vital Signs: Vital Signs - 24 hr 06/09/23 14:01 Temperature 97.1 F Pulse Rate 81 Respiratory Rate 16 Blood Pressure 146/88 H Pulse Oximetry 99 Oxygen Delivery Method Room Air BMI result Body Mass Index 23.0 Const General: cooperative, no acute distress, alert and awake Nutritional Appearance: well nourished Orientation/consciousness: patient oriented x3 Limitations: no limitations HENMT Head: Yes normal to inspection and Yes atraumatic Ears: hearing grossly normal bilaterally and external ears normal General nose exam: Normal external nose present, no nasal discharge noted and no epistaxis Face and sinus: Yes normal facial exam, No abrasion and No laceration Mouth: Normal oral and palatal mucosa present, no drooling and no muffled voice Eyes General: appearance normal, both eyes and all related structures Periorbital: periorbital findings normal Eyelids: Yes eyelids normal Conjunctivae: conjunctivae normal Pupils: Equal, round and reactive pupils present EOM: EOMs intact bilaterally Neck Neck: Yes normal visual inspection, Yes full ROM and Yes no lymphadenopathy Chest Chest palpation & inspection: normal inspection of the chest Resp Effort & Inspection: normal respiratory effort and able to speak in complete sentences GI Inspection: Yes normal to inspection Neuro General: patient oriented x3 and moves all extremities Cranial nerves: Yes Equal, round and reactive pupils present Cognition (Neuro): normal cognition Motor exam (neuro): 5/5 motor strength present throughout Sensory Exam: Normal double simultaneous stimulation for sensation Coordination: [id number] test normal Extrem General: Yes normal to inspection, Yes full ROM and Yes capillary refill normal Psych Appearance: grossly normal Mental Status: mental status grossly normal Affect: normal affect Attitude: cooperative Thought process: Normal thought process present Thought content: Normal thought content present Insight: Good insight present (Psych) Medical Decision Making Medical Decision Making MDM Narrative: Patient is a 52 year old assigned male at with a history of heart murmur presenting to the emergency department today with right ring finger pain. Patient's physical exam was unremarkable. I explained my physical exam findings to the patient. I answered all questions asked by the patient. Patient's clinical presentation is most consistent with right ring trigger finger. I stressed the importance of the patient taking his medication as prescribed. I stressed the importance of the patient following up with his primary care provider and an orthopedic provider. I stressed the importance of the patient returning to the emergency department immediately if his symptoms were to worsen or if he were to develop any dizziness, shortness of breath, difficulty breathing, chest pain, blurry vision, loss of vision, nausea, vomiting, abdominal pain, fever, chills, back pain, or any other complaints. Patient verbalized agreement and understanding with this treatment plan and discharge. Differential Diagnosis Differential Diagnoses: The differential diagnosis associated with the presentation includes Ring finger pain Finger pain Finger strain Finger sprain Trigger finger Admission/Observation Consideration of admission/observation: Escalation of care including admission/observation considered Patient would have been admitted to the hospital had his clinical presentation warranted hospital admission. Prescription Management I considered prescription management with: Other (patient prescribed a corticosteroid for his right ring trigger finger) Discharge Plan Discharge Clinical Impression: Trigger finger Patient Disposition: Home, Self-Care Instructions: Trigger Finger (ED) Additional Instructions: Follow up with your primary care provider and an orthopedic provider. Return to the emergency department immediately if your symptoms worsen or if you develop any dizziness, shortness of breath, difficulty breathing, chest pain, blurry vision, loss of vision, nausea, vomiting, abdominal pain, fever, chills, back pain, or any other complaints. Prescriptions: New prednisone 20 mg tablet 20 mg PO DAILY 7 Days Qty: 7 0RF No Action acetaminophen [Tylenol Extra Strength] 500 mg tablet 500 mg PO Q6H PRN (Reason: pain or fever) Qty: 20 0RF lidocaine [Lidoderm] 5 % adhesive patch,medicated 1 patch topical DAILY MDD remove after 12 hours PRN (Reason: pain) Qty: 30 0RF Rx Instructions: leave on most painful area for up to 12 hrs naproxen 500 mg tablet 500 mg PO BID PRN (Reason: pain) 10 Days Qty: 20 0RF cyclobenzaprine 5 mg tablet 5 mg PO Q8H PRN (Reason: pain (scale score 7-10)) 5 Days Qty: 14 0RF [place] [facility] [place] (Call to establish and follow up with a primary care provider. If you already have a primary care provider, please follow up with them.) [facility] [place] [facility] Group[place] (Call to establish and follow up with a primary care provider. If you already have a primary care provider, please follow up with them.) [facility] [place] [place] Group] (Call to establish and follow up with a primary care provider. If you already have a primary care provider, please follow up with them.) [facility] [place] [facility] [place] Group] (Call to establish and follow up with an orthopedic provider.) Print Language: [place]
[2023-06-09 14:13] VITALS: BP 146/88; PULSE 81; RESP 16; TEMP 36.2; O2SAT 99
== END 2023-06-09 14:14 | disposition home or self-care (01) ==
PROVIDERS: Emergency Provider Emergency Medicine
DX: M65.341 Trigger finger, right ring finger (principal)
CPT/HCPCS: 99282; 99283